=== PATIENT | female | born 1955 | race Caucasian/White ===

== ENCOUNTER 2023-03-31 16:40 | Emergency (ER) | payer OTHER ==
[~2023-03-31] VITALS: Ht 154.9 cm; Wt 72.6 kg
[2023-03-31 16:45] VITALS: BP_SYST 171
[2023-03-31 18:20] LABS: BILIRUBIN,URINE NEGATIVE (NEGATIVE); BLOOD, URINE NEGATIVE (NEGATIVE); CLARITY/URINE CLEAR (CLEAR); COLOR,URINE YELLOW (YELLOW); GLUCOSE,URINE NEGATIVE (NEGATIVE); KETONES,URINE NEGATIVE (NEGATIVE); LEUKOCYTE ESTERASE ,URINE NEGATIVE (NEGATIVE); NITRITE, URINE NEGATIVE (NEGATIVE); PROTEIN URINE TRACE (NEGATIVE); UROBILINOGEN,URINE 0.2 (0.2-1.0)
[2023-03-31 19:03] LABS: BASOPHILS % (AUTO) 0.5 % (0.0-2.0); EOSINOPHILS # (AUTO) 0.2 K/uL (0.0-0.4); HEMOGLOBIN 12.8 g/dL (12.0-16.0); LYMPHOCYTES # (AUTO) 3.2 K/uL (1.0-5.5); LYMPHOCYTES % (AUTO) 37.8 % (20.5-51.5); MEAN CORPUSCULAR HEMOGLOBIN 30 pg (27-31); MEAN CORPUSCULAR HGB CONC 34 % (32-36); MEAN CORPUSCULAR VOLUME 88 fL (79.0-98.0); MONOCYTES # (AUTO) 0.5 K/uL (0.0-1.0); MONOCYTES % (AUTO) 5.9 % (1.7-9.3); NEUTROPHILS # (AUTO) 4.6 K/uL (1.8-7.7); NEUTROPHILS % (AUTO) 53.8 % (40.0-70.0); PLATELET COUNT (AUTO) 194 K/uL (130-430); RED BLOOD CELL COUNT(AUTO) 4.33 MIL/uL (4.2-6.2); WHITE BLOOD COUNT (AUTO) 8.6 K/uL (4.8-10.8)
[2023-03-31 19:14] LABS: CALCIUM 8.9 mg/dL (8.4-11.0); CREATININE 1.84 mg/dL (0.55-1.30)
[2023-03-31 19:23] LABS: ALBUMIN 3.6 g/dL (3.4-4.8); PHOSPHORUS 3.5 mg/dL (2.7-4.5); TOTAL BILIRUBIN 0.6 mg/dL (0.0-1.0)
[2023-03-31 21:04] VITALS: BP_SYST 132
== END 2023-03-31 21:04 | disposition home or self-care (01) ==
LOC: SED 16:40
DX: R07.89 Other chest pain (principal); E11.22 Type 2 diabetes mellitus with diabetic chronic kidney disease; N18.4 Chronic kidney disease, stage 4 (severe); R19.7 Diarrhea, unspecified; M25.512 Pain in left shoulder; Z88.0 Allergy status to penicillin; Z88.1 Allergy status to other antibiotic agents; Z79.899 Other long term (current) drug therapy
CPT/HCPCS: 36415; 71045; 80053; 81003; 82962; 83735; 84100; 84484; 85025; 93005; 99285